=== PATIENT | male | born 1990 | race Caucasian/White ===

== ENCOUNTER 2017-01-08 20:20 | Emergency (ER) | payer BC ==
[2017-01-08] MEDS ORDERED: RANITIDINE HCL 150 MG TABLET (FP) PO ONE (20:30)
[2017-01-08] MEDS ORDERED: predniSONE 20 MG TABLET (UD) PO ONE (20:30)
--- NOTE | 2017-01-08 20:37 | PDOC ---
History of Present Illness <He Hale - Last Filed: 01/08/17 20:35> - General History Source: Patient Exam Limitations: No Limitations - History of Present Illness Initial Comments: 01/08/17 20:40 The patient is a 26 year old male, with no significant past medical history, who presents to the emergency department with a diffused upper and lower body rash for the past 3 days. He reports that he had an infected ingrown hair under his left armpit for which his PMD prescribed him Bactrim. He has a history of ingrown hairs under his right armpit in the past for which he has been prescribed Bactrim. He reports that this time around he was placed on a 7 day regimen of Bactrim and made it to day 5 before the rash began to appear. He stopped taking Bactrim 2 days ago. He denies any deviation from his normal routine, including food and travel. The patient denies chest pain, shortness of breath, headache and dizziness. Denies fever, chills, nausea, vomit, diarrhea and constipation. Allergies: Clindamycin, cefuroxime axetil Past surgical history: None reported Social history: No tobacco, alcohol or drug use reported <Peng Pearce - Last Filed: 01/08/17 20:40> - General Chief Complaint: Rash Stated Complaint: ALLERGIC REACTION Time Seen by Provider: 01/08/17 20:26 Past History - Past Medical History Other medical history: DENIES - Immunization History Td Vaccination: Yes Immunization Up to Date: Yes - Psycho/Social/Smoking Cessation Hx Anxiety: No Suicidal Ideation: No Smoking Status: Yes Smoking History: Never smoked Have you smoked in the past 12 months: No Number of Cigarettes Smoked Daily: 0 Information on smoking cessation initiated: No Hx Alcohol Use: No Drug/Substance Use Hx: No Substance Use Type: None <He Hale - Last Filed: 01/08/17 20:35> <Peng Pearce - Last Filed: 01/08/17 20:40> - Past Medical History Allergies/Adverse Reactions: Allergies Allergy/AdvReac Type Severity Reaction Status Date / Time cefuroxime axetil Allergy Verified 01/08/17 20:22 [From Ceftin] clindamycin Allergy Verified 01/08/17 20:22 Home Medications: Ambulatory Orders Diphenhydramine HCl [Benadryl -] 25 mg PO Q6H #20 capsule 01/08/17 Famotidine [Pepcid] 20 mg PO DAILY #7 tablet 01/08/17 Prednisone [Deltasone -] 40 mg PO DAILY #08 tablet 01/08/17 Review of Systems - Review of Systems Able to Perform ROS?: Yes Integumentary: Yes: Rash (Diffused throughout the body) <Peng Pearce - Last Filed: 01/08/17 20:40> *Physical Exam - Vital Signs Last Vital Signs Temp Pulse Resp BP Pulse Ox 98.1 F 72 16 122/66 100 01/08/17 20:23 01/08/17 20:23 01/08/17 20:23 01/08/17 20:23 01/08/17 20:23 - Physical Exam General Appearance: Yes: Nourished, Appropriately Dressed. No: Apparent Distress HEENT: positive: Normal ENT Inspection Neck: positive: Supple. negative: Tender, Stridor Respiratory/Chest: positive: Lungs Clear, Normal Breath Sounds. negative: Respiratory Distress Cardiovascular: positive: Regular Rhythm, Regular Rate Gastrointestinal/Abdominal: positive: Soft. negative: Tender Integumentary: positive: Normal Color, Rash (GENERALIZED PAPULO ERYTHEMATOUS RASH C/W URTICARIA) Neurologic: positive: Fully Oriented, Alert, Normal Mood/Affect, Normal Response , Motor Strength 5/5 <He Hale - Last Filed: 01/08/17 20:35> - Vital Signs Last Vital Signs Temp Pulse Resp BP Pulse Ox 98.1 F 72 16 122/66 100 01/08/17 20:23 01/08/17 20:23 01/08/17 20:23 01/08/17 20:23 01/08/17 20:23 <Peng Pearce - Last Filed: 01/08/17 20:40> ED Treatment Course - Medications Given in the ED: ED Medications Discontinued Medications Generic Name Dose Route Start Last Admin Trade Name Freq PRN Reason Stop Dose Admin Diphenhydramine HCl 50 mg 01/08/17 20:30 01/08/17 20:39 Benadryl Injection - IM 01/08/17 20:31 50 mg ONCE ONE Administration Prednisone 60 mg 01/08/17 20:30 01/08/17 20:39 Deltasone - PO 01/08/17 20:31 60 mg ONCE ONE Administration Ranitidine HCl 150 mg 01/08/17 20:30 01/08/17 20:39 Zantac - PO 01/08/17 20:31 150 mg ONCE ONE Administration <Peng Pearce - Last Filed: 01/08/17 20:40> *DC/Admit/Observation/Transfer <He Hale - Last Filed: 01/08/17 20:35> - Attestations Scribe Attestion: 01/08/17 20:40 Documentation prepared by Peng Pearce, acting as medical support assistant for He Hale MD <Peng Pearce - Last Filed: 01/08/17 20:40> Diagnosis at time of Disposition: Allergic reaction Qualifiers: Encounter type: initial encounter Qualified Code(s): T78.40XA - Allergy, unspecified, initial encounter - Discharge Dispostion Condition at time of disposition: Stable - Prescriptions Prescriptions: Diphenhydramine HCl [Benadryl -] 25 mg PO Q6H #20 capsule Prednisone [Deltasone -] 40 mg PO DAILY #08 tablet Famotidine [Pepcid] 20 mg PO DAILY #7 tablet - Patient Instructions Additional Instructions: TAKE MEDICATION PRESCRIBED STOP ANTIBIOTICS SEE YOUR DOCTOR TOMORROW RETURN IF WORSENING OR NEW SYMPTOMS
[2017-01-08 20:47] VITALS: BP 122/66; PULSE 72; TEMP 98.1; BMI 33.9
== END 2017-01-08 20:52 | disposition home or self-care (01) ==
LOC: FER 20:20
PROC: 3E033GC Introduction of Other Therapeutic Substance into Peripheral Vein, Percutaneous Approach (ICD-10-PCS; principal; 2017-01-08)
DX: T78.40XA Allergy, unspecified, initial encounter (principal)
CPT/HCPCS: 99281-25

== ENCOUNTER 2018-06-30 17:02 | Emergency (ER) | payer BC ==
--- NOTE | 2018-06-30 17:07 | PDOC ---
History of Present Illness <Nilda Ruff - Last Filed: 06/30/18 18:47> - General History Source: Patient Exam Limitations: No Limitations - History of Present Illness Initial Comments: 06/30/18 18:50 Patient is a 27 year old male with no significant past medical history who presents to the ED with complaints of right eye pain, s/p laceration. Patient reports playing rugby when he collided with another player causing him to cut his right eyebrow. He denies any loss of consciousness or blurred vision. Patient states he does not recall when his last tetanus shot was. Denies chest pain, Sob. Denies nausea, vomiting. Denies fevers, chills. Denies contact with sick individuals, out of state travelling. Denies dysuria, hematuria. Denies diarrhea, constipation. Denies head trauma, blurred vision, loss of consciousness. Denies any other symptoms. Allergies: Clindamycin, cefuroxime axetil Social history: No smoking. No alcohol. No illicit drugs. Surgical history: None PMD: None <Jerry Brandt - Last Filed: 06/30/18 18:50> - General Chief Complaint: Injury Stated Complaint: rt eyebrow laceration Time Seen by Provider: 06/30/18 17:06 Past History - Immunization History Td Vaccination: Yes Immunization Up to Date: Yes - Suicide/Smoking/Psychosocial Hx Smoking Status: Yes Smoking History: Never smoked Have you smoked in the past 12 months: No Number of Cigarettes Smoked Daily: 0 Hx Alcohol Use: No Drug/Substance Use Hx: No Substance Use Type: None <Nilda Ruff - Last Filed: 06/30/18 18:47> <Jerry Brandt - Last Filed: 06/30/18 18:50> - Past Medical History Allergies/Adverse Reactions: Allergies Allergy/AdvReac Type Severity Reaction Status Date / Time cefuroxime axetil Allergy Verified 06/30/18 17:03 [From Ceftin] clindamycin Allergy Verified 06/30/18 17:03 Home Medications: Ambulatory Orders NK [No Known Home Medication] 06/30/18 Review of Systems - Review of Systems Able to Perform ROS?: Yes Comments:: 06/30/18 18:50 See HPI. All other systems reviewed and unremarkable <Jerry Brandt - Last Filed: 06/30/18 18:50> *Physical Exam - Vital Signs Last Vital Signs Temp Pulse Resp BP Pulse Ox 98.3 F 80 20 112/85 100 06/30/18 17:02 06/30/18 17:02 06/30/18 17:02 06/30/18 17:02 06/30/18 17:02 - Physical Exam Comments: 06/30/18 18:50 General Physical Exam: NAD EOMI, BETH MMM, OP WNL NCAT, no midline cervical tenderness RRR, nl s1/s2, no m/r/g CTABL, no w/r/r +2.5 cm linear in right eyebrow Soft, NTND No edema, WWP, no rash Neuro grossly intact, gait WNL, moving all 4 A&O x 3, mood/affect WNL. <Jerry Brandt - Last Filed: 06/30/18 18:50> Procedures - Laceration/Wound Repair Right Eye Wound Length: to 2.5 cm Wound Explored: clean, no foreign body present Wound's Depth, Shape: into muscle, linear Irrigated w/ Saline: Yes Betadine Prep: Yes Anesthesia: 1% Lidocaine Amount of Anesthetic (ccs): 60 (mg) Wound Debrided: minimal Wound Repaired With: Sutures Suture Size/Type: 5:0 Number of Sutures: 6 Layer Closure: Yes Deep Layer Suture Size/Type: 4:0, vycril Number of Deep Layer Sutures: 1 Sterile Dressing Applied: Yes <Nilda Ruff - Last Filed: 06/30/18 18:47> ED Treatment Course - Medications Given in the ED: ED Medications Discontinued Medications Generic Name Dose Route Start Last Admin Trade Name Slava PRN Reason Stop Dose Admin Diphtheria/Tetanus/Acell Pertussis 0.5 ml 06/30/18 17:33 06/30/18 18:32 Boostrix - IM 06/30/18 17:34 0.5 ml .ONCE ONE Administration Lidocaine HCl 50 mg 06/30/18 17:33 06/30/18 18:34 Xylocaine 2% SQ 06/30/18 17:34 50 mg ONCE ONE Administration <Jerry Brandt - Last Filed: 06/30/18 18:50> Medical Decision Making - Medical Decision Making 06/30/18 17:34 27yoM R eyebrow laceration during rugby. Unknown last tetanus. No loc or other significant trauma - tetanus - lac repair - dc <ElzbietaNilda Ervin - Last Filed: 06/30/18 18:47> *DC/Admit/Observation/Transfer <ElzbietaNilda Ervin - Last Filed: 06/30/18 18:47> - Attestations Scribe Attestion: 06/30/18 18:50 Documentation prepared by Jerry Brandt, acting as bacteriologist medical for Nilda Ruff MD. <Jerry Brandt - Last Filed: 06/30/18 18:50> Diagnosis at time of Disposition: Facial laceration - Discharge Dispostion Disposition: HOME Condition at time of disposition: Good - Patient Instructions Additional Instructions: return to ER in 5 days for suture removal. clean and dry x 24h then wash with soap and water 2x daily no swiming/submersion while sutures are in.
[2018-06-30 17:24] VITALS: BP 112/85; PULSE 80; TEMP 98.3; BMI 33.2
[2018-06-30] MEDS ORDERED: LIDOCAINE HCL 2% (50ML VIAL) SQ ONE (17:33)
[2018-06-30] MEDS ORDERED: DIPHTH,PERTUSS(ACELL),TET 0.5 ML DISP.SYRIN IM ONE (17:33)
== END 2018-06-30 18:49 | disposition home or self-care (01) ==
LOC: FER 17:02
PROC: 0HQ1XZZ Repair Face Skin, External Approach (ICD-10-PCS; principal; 2018-06-30)
PROC: 3E0234Z Introduction of Serum, Toxoid and Vaccine into Muscle, Percutaneous Approach (ICD-10-PCS; 2018-06-30)
DX: S01.111A Laceration without foreign body of right eyelid and periocular area, initial encounter (principal); W50.0XXA Accidental hit or strike by another person, initial encounter; Y93.63 Activity, rugby; Y92.89 Other specified places as the place of occurrence of the external cause
CPT/HCPCS: 90715; 99281-25